=== PATIENT | male | born 1985 | race Caucasian/White ===

== ENCOUNTER 2018-08-04 12:10 | Emergency (ER) | payer BC ==
[2018-08-04 12:34] VITALS: BP 125/88
[2018-08-04] MEDS ORDERED: Sodium Chloride 0.9% 500 ML IV ONE (13:05)
--- NOTE | 2018-08-04 13:05 | EDM.PDOC ---
ED HPI GENERAL MEDICAL PROBLEM - General Chief Complaint: Gastrointestinal Problem Stated Complaint: STOMACH PAIN Time Seen by Provider: 08/04/18 12:21 Source of Information: Reports: Patient, RN Notes Reviewed History Limitations: Reports: No Limitations - History of Present Illness INITIAL COMMENTS - FREE TEXT/NARRATIVE: The patient states that he developed upper midline abdominal pain this past 08/02/2018. The pain migrated to his right lower quadrant around 03:00 this morning. It is burning in character, and occasionally shoots to the suprapubic region, and even to the left lower quadrant. He states that he felt better in the left decubitus position last night, but has not found any positions that make his symptoms feel worse. He was not bothered by bumps in the road on his way to the ED. He has no associated nausea, vomiting, diarrhea, or urinary symptoms. He is unsure if he is constipated. He was thinking that his symptoms may have been due to constipation, therefore had minimal oral intake since Sunday. He had a small bowel movement this morning. He states that he had diaphoresis last night, although he has not had a recorded fever, and is afebrile here in the ED. The patient has not taken any [id number] or home remedies to try to treat his symptoms. No prior similar symptoms. The patient does not have a PCP. Mid-Anterior Abdomen Pain Score (Numeric/FACES): 4 - Related Data Allergies Allergy/AdvReac Type Severity Reaction Status Date / Time No Known Allergies Allergy Verified 08/04/18 12:34 Home Meds: Home Meds . [No Known Home Meds] 08/04/18 [History] Past Medical History Musculoskeletal History: Reports: Fracture (right wrist) - Infectious Disease History Infectious Disease History: Reports: Chicken Pox Social & Family History - Family History Family Medical History: Noncontributory - Tobacco Use Smoking Status *Q: Never Smoker Second Hand Smoke Exposure: No - Caffeine Use Caffeine Use: Reports: Coffee, Soda, Tea - Alcohol Use Alcohol Use History: Yes Alcohol Use Frequency: Socially - Recreational Drug Use Recreational Drug Use: No - Living Situation & Occupation Living situation: Reports: Single, Alone Occupation: Employed (lead teller) ED ROS GENERAL - Review of Systems Review Of Systems: ROS reveals no pertinent complaints other than HPI. ED EXAM, GI/ABD - Physical Exam Exam: See Below Exam Limited By: No Limitations General Appearance: Alert, WD/WN, No Apparent Distress Eyes: Bilateral: Normal Appearance, EOMI Ears: Normal External Exam, Hearing Grossly Normal Nose: Normal Inspection Throat/Mouth: Normal Inspection, Normal Lips, Normal Voice, No Airway Compromise Head: Atraumatic, Normocephalic Neck: Normal Inspection, Full Range of Motion Respiratory/Chest: No Respiratory Distress, Lungs Clear, Normal Breath Sounds, No Accessory Muscle Use Cardiovascular: Normal Peripheral Pulses, Regular Rate, Rhythm, No Edema, No Gallop, No JVD, No Murmur, No Rub GI/Abdominal Exam: Soft, Non-Tender (including the RLQ), No Organomegaly, No Distention, No Abnormal Bruit, No Mass, Abnormal Bowel Sounds (diminished) (Male) Exam: Deferred Rectal (Males) Exam: Deferred Back Exam: Normal Inspection, Full Range of Motion. No: CVA Tenderness (L), CVA Tenderness (R) Extremities: Normal Inspection, Normal Range of Motion, No Pedal Edema, Normal Capillary Refill Neurological: Alert, Oriented, Normal Cognition, No Motor/Sensory Deficits Psychiatric: Normal Affect Skin Exam: Warm, Dry, Intact, Normal Color, No Rash Course - Vital Signs Last Recorded V/S: Last Vital Signs Temp 36.6 C 08/04/18 12:25 Pulse 102 H 08/04/18 12:25 Resp 14 08/04/18 12:25 BP 125/88 08/04/18 12:25 Pulse Ox 97 08/04/18 12:25 - Orders/Labs/Meds Orders: Active Orders 24 hr Category Date Time Status Abdomen 1V Upright [CR] Stat Exams 08/04/18 13:02 Taken Labs: Laboratory Tests 08/04/18 08/04/18 08/04/18 Range/Units 13:15 13:15 14:40 WBC 5.23 (4.23-9.07) K/mm3 RBC 5.30 (4.63-6.08) M/mm3 Hgb 15.5 (13.7-17.5) gm/L Hct 45.6 (40.1-51.0) % MCV 86.0 (79.0-92.2) fl MCH 29.2 (25.7-32.2) pg MCHC 34.0 (32.2-35.5) g/dl RDW Std Deviation 37.3 (35.1-43.9) fL Plt Count 167 (163-337) K/mm3 MPV 9.5 (9.4-12.3) fl Neutrophils % (Manual) 65 H (40-60) % Band Neutrophils % 0 (0-10) % Lymphocytes % (Manual) 25 (20-40) % Atypical Lymphs % 0 % Monocytes % (Manual) 9 (2-10) % Eosinophils % (Manual) 1 (0.8-7.0) % Basophils % (Manual) 0 L (0.2-1.2) Platelet Estimate Adequate RBC Morph Comment Normal Sodium 139 (136-145) mEq/L Potassium 3.9 (3.5-5.1) mEq/L Chloride 102 (98-107) mEq/L Carbon Dioxide 25 (21-32) mEq/L Anion Gap 15.9 H (5-15) BUN 14 (7-18) mg/dL Creatinine 1.1 (0.7-1.3) mg/dL Est Cr Clr Drug Dosing 92.78 mL/min Estimated GFR (MDRD) > 60 (>60) mL/min BUN/Creatinine Ratio 12.7 L (14-18) Glucose 75 (74-106) mg/dL Calcium 9.1 (8.5-10.1) mg/dL Total Bilirubin 1.4 H (0.2-1.0) mg/dL AST 19 (15-37) U/L ALT 35 (16-63) U/L Alkaline Phosphatase 75 (46-116) U/L Total Protein 7.9 (6.4-8.2) g/dl Albumin 4.5 (3.4-5.0) g/dl Globulin 3.4 gm/dL Albumin/Globulin Ratio 1.3 (1-2) Lipase 129 (73-393) U/L Urine Color Yellow (Yellow) Urine Appearance Clear (Clear) Urine pH 6.5 (5.0-8.0) Ur Specific [place] 1.010 (1.005-1.030) Urine Protein Negative (Negative) Urine Glucose (UA) Negative (Negative) Urine Ketones 3+ H (Negative) Urine Occult Blood Negative (Negative) Urine Nitrite Negative (Negative) Urine Bilirubin Negative (Negative) Urine Urobilinogen 0.2 (0.2-1.0) Ur Leukocyte Esterase Negative (Negative) Urine RBC Not seen (0-5) /hpf Urine WBC Not seen (0-5) /hpf Ur Epithelial Cells 0-5 (0-5) /hpf Urine Bacteria Not seen (FEW) /hpf Urine Mucus Rare H (FEW) /hpf Meds: Medications Discontinued Medications Generic Name Dose Route Start Last Admin Trade Name Jorge Luis PRN Reason Stop Dose Admin Sodium Chloride 500 mls @ 1,000 mls/hr 08/04/18 13:05 08/04/18 13:21 Normal Saline IV 08/04/18 13:34 1,000 mls/hr .BOLUS ONE Administration - Re-Assessments/Exams Free Text/Narrative Re-Assessment/Exam: 08/04/18 13:03 The patient's history is very concerning for appendicitis, however, he has no tenderness to palpation of his abdomen, whatsoever. I feel, therefore, that a CT scan of the abdomen and pelvis at this time would not be cantrell, as it would likely deliver unnecessary radiation. I would prefer to see if the patient's symptoms worsen, and obtain a CT scan at that time. For today's purposes, then, we will check some blood work, a urinalysis, and an upright abdominal radiograph. 08/04/18 13:46 Upright abdominal radiograph is notable only for a paucity of intestinal gas. No colonic stool noted. No free air. Formal read per the Radiologist pending. 08/04/18 15:18 Test results discussed with the patient. Today's workup is entirely unremarkable. I explained to the patient that today's negative workup does not mean that he does not have appendicitis, and I encouraged him to return to the ED, should his symptoms worsen. The patient agreed. Departure - Departure Time of Disposition: 15:19 Disposition: Home, Self-Care 01 Condition: Good Clinical Impression: Right lower quadrant abdominal pain of unknown etiology - Discharge Information *PRESCRIPTION DRUG MONITORING PROGRAM REVIEWED*: Not Applicable *COPY OF PRESCRIPTION DRUG MONITORING REPORT IN PATIENT JOHN: Not Applicable Referrals: PCP,None [Primary Care Provider] - Forms: ED Department Discharge Additional Instructions: You were seen in the emergency room for upper midline abdominal pain that moved to her lower right abdomen. Workup in the ER included blood work, urinalysis, and an upright abdominal x-ray , all of which was entirely normal. You are not constipated. Your history is concerning for appendicitis, however, your physical exam found no tenderness to your abdomen, which is not consistent with appendicitis. In order to avoid unnecessary radiation, a CT scan of your abdomen and pelvis was not performed during this visit, however, if your symptoms worsen, we recommend that you return to the ER for reevaluation, that may include a CT scan at that time. In the meantime, stay adequately hydrated. Gatorade or Powerade are best. If you are hungry, we recommend that you eat a bland diet, such as oatmeal, mashed potatoes, applesauce, or bananas. - My Orders Last 24 Hours: My Active Orders 08/04/18 13:02 Abdomen 1V Upright [CR] Stat - Assessment/Plan Last 24 Hours: My Active Orders 08/04/18 13:02 Abdomen 1V Upright [CR] Stat
--- NOTE | 2018-08-05 07:58 | CR ---
Abdomen: Upright view of the abdomen was obtained. Comparison: No prior abdominal x-ray. No free air is seen. No abnormal calcifications or discrete soft tissue abnormality is seen. Bowel gas pattern is normal. Impression: 1. Nothing acute is seen on upright abdominal x-ray. Diagnostic code #1
== END 2018-08-04 15:35 | disposition home or self-care (01) ==
LOC: JD.ED 12:10
DX: R10.31 Right lower quadrant pain (principal)
CPT/HCPCS: 36415; 74018; 80053; 81001; 83690; 85007; 85027; 99284; J7040; 99283